=== PATIENT | male | born 1955 | race Asian ===

== ENCOUNTER 2016-08-28 05:40 | Emergency (ER) | payer BC, OTHER ==
[2016-08-28 06:10] VITALS: BMI 26.3
[2016-08-28 06:52] LABS: BASOPHIL 0.7 % (0-2.0); EOSINOPHIL 7.9 % (0-4.5); MCH 29.5 pg (25.7-33.7); MCHC 34.3 g/dl (32.0-35.9); MEAN PLT VOLUME 8.6 fl (7.5-11.1); NEUTROPHILS 59.3 % (42.8-82.8); PLATELET COUNT 180 K/MM3 (134-434); RDW 13.6 % (11.9-15.9); WHITE BLOOD COUNT 6.3 K/mm3 (4.0-10.0)
[2016-08-28] MEDS ORDERED: ASPIRIN 325 MG ENTERIC COATED TABLET (FP) PO ONE (07:01)
[2016-08-28 07:08] LABS: ALBUMIN 4.1 g/dl (3.4-5.0); ALK PHOS 48 U/L (45-117); ANION GAP 4 (8-16); BILIRUBIN,TOTAL 0.9 mg/dL (0.2-1.0); CALCIUM 9.2 mg/dL (8.5-10.1); CO2 30 mmol/L (21-32); COCKROFT - GAULT 82.15; GLUCOSE,RANDOM 111 mg/dL (74-106); SGOT/AST 18 U/L (15-37); SGPT/ALT 23 U/L (12-78)
[2016-08-28 07:10] LABS: TROPONIN I < 0.02 ng/ml (0.00-0.05)
--- NOTE | 2016-08-28 07:14 | PDOC ---
History of Present Illness - General Chief Complaint: Blood Pressure Problem Stated Complaint: HIGH BP, CHEST DISCOMFORT Time Seen by Provider: 08/28/16 07:00 History Source: Patient Exam Limitations: No Limitations - History of Present Illness Initial Comments: 08/28/16 07:02 Patient is a 61-year-old male with history of hypertension, diabetes, BPH, HLD, colon cancer, bowel resection, no chemo or radiation, complaining of chest pressure and elevated blood pressure. Patient states that he woke up this morning with palpitationsheart racing. He got up and took his blood pre and it was elevated on the right to 170/110 and 150/90 on the left. Shortly after had sudden onset of hot flashes and pain in the neck, chest pain described as a pressure, 9/10, nonpleuritic, and dizziness described as spinning. denies dizziness, nausea, vomiting. He took 80 mg of Diovan and then reported to the emergency room for evaluation. Patient states that he's been having problems with elevation in blood pressure for x 1 week. Stress/ECHO normal 4 years ago. No recent travel no leg swelling. PMD: Dr. Randhawa Cardio: Dr. Anderson PMHX: as above PSocHX: neg etoh, drug, cig FAMhx: noncontributory ALL: NKDA GENERAL/CONSTITUTIONAL: [No fever or chills. No weakness. No weight change.] HEAD, EYES, EARS, NOSE AND THROAT: [No change in vision. No ear pain or discharge. No sore throat.] CARDIOVASCULAR: (+) chest pain or shortness of breath.] RESPIRATORY: [No cough, wheezing, or hemoptysis.] GASTROINTESTINAL: [No nausea, vomiting, diarrhea or constipation. No rectal bleeding.] GENITOURINARY: [No dysuria, frequency, or change in urination.] MUSCULOSKELETAL: [No joint or muscle swelling or pain. No neck or back pain.] SKIN AND BREASTS: [No rash or easy bruising.] NEUROLOGIC: [No headache, vertigo, loss of consciousness, or loss of sensation.] PSYCHIATRIC: [No depression or anxiety.] ENDOCRINE: [No increased thirst. No abnormal weight change.] HEMATOLOGIC/LYMPHATIC: [No anemia, easy bleeding, or history of blood clots.] ALLERGIC/IMMUNOLOGIC: [No hives or skin allergy. No latex allergy.] GENERAL: [The patient is awake, alert, and fully oriented, in no acute distress. ] HEAD: [Normal with no signs of trauma.] EYES: [Pupils equal, round and reactive to light, extraocular movements intact, sclera anicteric, conjunctiva clear.] ENT: [Ears normal, nares patent, oropharynx clear without exudates. Moist mucous membranes.] NECK: [Normal range of motion, supple without lymphadenopathy, JVD, or masses.] LUNGS: [Breath sounds equal, clear to auscultation bilaterally. No wheezes, and no crackles.] HEART: [Regular rate and rhythm, normal S1 and S2 without murmur, rub.] ABDOMEN: [Soft, nontender, normoactive bowel sounds. No guarding, no rebound. No masses.] EXTREMITIES: [Normal range of motion, no edema. No clubbing or cyanosis. No cords, erythema, or tenderness.] NEUROLOGICAL: [Cranial nerves II through XII grossly intact. Normal speech, normal gait.] PSYCH: [Normal mood, normal affect.] SKIN: [Warm, Dry, normal turgor, no rashes or lesions noted.] Past History - Past Medical History Allergies/Adverse Reactions: Allergies Allergy/AdvReac Type Severity Reaction Status Date / Time No Known Allergies Allergy Verified 08/28/16 06:08 Home Medications: Ambulatory Orders Aspirin [ASA -] 81 mg PO DAILY 10/17/15 Metformin HCl [Metformin HCl ER] 1,000 mg PO DAILY 10/17/15 Pravastatin Sodium [Pravachol -] 80 mg PO HS 10/17/15 Valsartan [Diovan] 160 mg PO DAILY #30 tablet 10/18/15 Diltiazem Cd [Cardizem Cd -] 240 mg PO DAILY 08/28/16 Dutasteride [Avodart] 0.5 mg PO HS 08/28/16 Cancer: Yes (colon) HTN: Yes Hypercholesterolemia: Yes - Surgical History GI Surgery: Yes (colon cancer) - Psycho/Social/Smoking Cessation Hx Suicidal Ideation: No Smoking History: Former smoker Have you smoked in the past 12 months: No If you are a former smoker, when did you quit?: 1986 Information on smoking cessation initiated: No Hx Alcohol Use: No Drug/Substance Use Hx: No Substance Use Type: None Hx Substance Use Treatment: No *Physical Exam - Vital Signs Last Vital Signs Temp Pulse Resp BP Pulse Ox 97.5 F L 72 18 144/93 97 08/28/16 06:03 08/28/16 06:03 08/28/16 06:03 08/28/16 06:03 08/28/16 06:03 ED Treatment Course - LABORATORY CBC & Chemistry Diagram: 08/28/16 06:30 08/28/16 06:30 - ADDITIONAL ORDERS Additional order review: Laboratory Results 08/28/16 06:30 Sodium 139 Potassium 4.6 Chloride 105 Carbon Dioxide 30 Anion Gap 4 L BUN 14 Creatinine 1.0 Creat Clearance w eGFR > 60 Random Glucose 111 H Calcium 9.2 Total Bilirubin 0.9 AST 18 ALT 23 Alkaline Phosphatase 48 Creatine Kinase 111 Troponin I < 0.02 Total Protein 7.0 Albumin 4.1 D 08/28/16 06:30 RBC 5.25 MCV 86.0 MCHC 34.3 RDW 13.6 MPV 8.6 Neutrophils % 59.3 D Lymphocytes % 26.6 D Monocytes % 5.5 Eosinophils % 7.9 H Basophils % 0.7 - RADIOLOGY Radiology Studies Ordered: Category Date Time Status CHEST X-RAY PORTABLE* [RAD] Stat Radiology 08/28/16 06:26 Taken Medical Decision Making - Medical Decision Making 08/28/16 07:36 Patient is a 61-year-old male with history of hypertension, diabetes, BPH, HLD, colon cancer, bowel resection, no chemo or radiation, complaining of chest pressure and elevated blood pressure. patient is elevated cardiac risk factors will get troponin/EKG, labs, aspirin 325 mg EKG Normal sinus [id number], normal axis,no ST-T wave case was endorsed still [employer] Mohini pending labs and disposition. *DC/Admit/Observation/Transfer Diagnosis at time of Disposition: Hypertension Qualifiers: Hypertension type: essential hypertension Qualified Code(s): I10 - Essential ( primary) hypertension Chest pain Qualifiers: Chest pain type: unspecified Qualified Code(s): R07.9 - Chest pain, unspecified
[2016-08-28] MEDS ORDERED: ASPIRIN 325 MG TABLET ONE (07:15)
--- NOTE | 2016-08-28 07:37 | PDOC ---
*Physical Exam - Vital Signs Last Vital Signs Temp Pulse Resp BP Pulse Ox 97.5 F L 72 18 144/93 97 08/28/16 06:03 08/28/16 06:03 08/28/16 06:03 08/28/16 06:03 08/28/16 06:03 Heart Score/ECG Review #2 General ECG Interpretation: Sinus Rhythm ([id number]) Compared to previous ECG there are: No significant change ED Treatment Course - LABORATORY CBC & Chemistry Diagram: 08/28/16 06:30 08/28/16 06:30 - ADDITIONAL ORDERS Additional order review: Laboratory Results 08/28/16 06:30 Sodium 139 Potassium 4.6 Chloride 105 Carbon Dioxide 30 Anion Gap 4 L BUN 14 Creatinine 1.0 Creat Clearance w eGFR > 60 Random Glucose 111 H Calcium 9.2 Total Bilirubin 0.9 AST 18 ALT 23 Alkaline Phosphatase 48 Creatine Kinase 111 Troponin I < 0.02 Total Protein 7.0 Albumin 4.1 D 08/28/16 06:30 RBC 5.25 MCV 86.0 MCHC 34.3 RDW 13.6 MPV 8.6 Neutrophils % 59.3 D Lymphocytes % 26.6 D Monocytes % 5.5 Eosinophils % 7.9 H Basophils % 0.7 Medical Decision Making - Medical Decision Making 08/28/16 07:30 Patient received in sign out from JAZMYN Meraz. Patient woke up at 1 AM with chest pressure took Diovan and symptoms relieved but decided to come to the ER. Patient has been asymptomatic here and is pending a second troponin Along with an EKG at 10:30 AM> 08/28/16 07:30 Laboratory Tests 08/28/16 08/28/16 06:30 06:30 WBC 6.3 Hgb 15.5 Hct 45.1 Plt Count 180 Neutrophils % 59.3 D Sodium 139 Potassium 4.6 Chloride 105 Carbon Dioxide 30 Anion Gap 4 L BUN 14 Creatinine 1.0 Random Glucose 111 H Calcium 9.2 AST 18 ALT 23 Alkaline Phosphatase 48 Troponin I < 0.02 08/28/16 12:26 Selected Entries 08/28/16 07:15 Temperature 97.7 F Pulse Rate [ 68 Right Radial] Respiratory 18 Rate Blood Pressure 132/92 [Left Arm] O2 Sat by Pulse 100 Oximetry (%) Laboratory Tests 08/28/16 11:29 Creatine Kinase 95 Troponin I < 0.02 Patient remains asymptomatic and will discharge home *DC/Admit/Observation/Transfer Diagnosis at time of Disposition: Hypertension Qualifiers: Hypertension type: essential hypertension Qualified Code(s): I10 - Essential ( primary) hypertension Chest pain Qualifiers: Chest pain type: unspecified Qualified Code(s): R07.9 - Chest pain, unspecified - Discharge Dispostion Condition at time of disposition: Improved - Referrals Referrals: Raúl Randhawa MD [Primary Care Provider] - - Patient Instructions Printed Discharge Instructions: DI for High Blood Pressure Additional Instructions: Please continue taking medication as prescribed and follow-up with your PCP. If his symptoms return or worsen, you may come to the ER.
[2016-08-28 12:22] LABS: TROPONIN I < 0.02 ng/ml (0.00-0.05)
[2016-08-28 13:17] VITALS: BP 137/81; PULSE 66; TEMP 98
--- NOTE | 2016-08-28 13:30 | EKG ---
Test Reason : Blood Pressure : / mmHG Vent. Rate : 064 BPM Atrial Rate : 064 BPM P-R Int : 174 ms QRS Dur : 102 ms QT Int : 384 ms P-R-T Axes : 072 056 066 degrees QTc Int : 396 ms NORMAL SINUS RHYTHM WITH SINUS ARRHYTHMIA NORMAL ECG WHEN COMPARED WITH ECG OF 17-OCT-2015 11:51, NO SIGNIFICANT CHANGE WAS FOUND Confirmed by PRACHI BOND MD ([id number]) on 08/28/2016 1:29:54 PM Referred By: Confirmed By:PRACHI BOND MD
--- NOTE | 2016-08-28 13:42 | EKG ---
Test Reason : Blood Pressure : / mmHG Vent. Rate : 068 BPM Atrial Rate : 068 BPM P-R Int : 170 ms QRS Dur : 094 ms QT Int : 388 ms P-R-T Axes : 068 007 067 degrees QTc Int : 412 ms NORMAL SINUS RHYTHM INCOMPLETE RIGHT BUNDLE BRANCH BLOCK NONSPECIFIC T WAVE ABNORMALITY ABNORMAL ECG WHEN COMPARED WITH ECG OF 28-AUG-2016 05:53, NO SIGNIFICANT CHANGE WAS FOUND Confirmed by PRACHI BOND MD ([id number]) on 08/28/2016 1:41:59 PM Referred By: Confirmed By:PRACHI BOND MD
== END 2016-08-28 13:18 | disposition home or self-care (01) ==
LOC: JER 05:40
DX: I10 Essential (primary) hypertension (principal); E07.89 Other specified disorders of thyroid; E11.9 Type 2 diabetes mellitus without complications; Z79.84 Long term (current) use of oral hypoglycemic drugs; E78.00 Pure hypercholesterolemia, unspecified; N40.0 Benign prostatic hyperplasia without lower urinary tract symptoms; Z85.038 Personal history of other malignant neoplasm of large intestine
CPT/HCPCS: 36415; 71010-TC; 80053; 82550; 84484; 85025; 93005; 93010; 99283-25

== ENCOUNTER 2022-04-10 10:19 | Inpatient (IN) | payer BC, OTHER ==
[2022-04-10 11:13] VITALS: BMI 25.8
[2022-04-10] MEDS ORDERED: SODIUM CHLORIDE 0.9% 1000 ML INFUS.BAG IV ONE ×2 (11:40→14:37)
[2022-04-10] MEDS ORDERED: ALBUTEROL SO4 HFA INHALER IH ONE (12:06)
[2022-04-10] MEDS ORDERED: ACETAMINOPHEN 325 MG TABLET (FP) PO ONE (12:10)
[2022-04-10] MEDS ORDERED: ALBUTEROL SO4 2.5/IPRATROPIUM 0.5 INH SOL 3 ML VIAL.NEB. NEB ONE ×2 (12:10→12:16)
[2022-04-10] MEDS ORDERED: ACETAMINOPHEN 325 MG TABLET (FP) ONE (12:16)
[2022-04-10 13:43] LABS: EPI CELLS 3 /uL (0-25.1); HYALINE CASTS 2 /uL (0-3.1); PH,URINE 5.5 (5.0-8.0); URINE APPEARANCE CLOUDY; URINE BACTERIA >9,000 /uL (0-1359); URINE BILIRUBIN NEGATIVE (NEGATIVE); URINE COLOR DK YELLOW; URINE GLUCOSE (UA) NEGATIVE (NEGATIVE); URINE KETONE NEGATIVE (NEGATIVE); URINE LEUK ESTERASE 2+ (NEGATIVE); URINE NITRITE POSITIVE (NEGATIVE); URINE PROTEIN 2+ (NEGATIVE); URINE RBC 102 /uL (0-23.9); URINE UROBILINOGEN 0.2 mg/dL (0.2-1.0); URINE WBC 777 /uL (0-25.8)
[2022-04-10] MEDS ORDERED: CEFTRIAXONE 1 GM in DEXTROSE 5%-WATER - 50 ML IVPB ONE (13:48)
[2022-04-10 13:50] LABS: BASO % 0.2 % (0-2.0); EOS % 0.9 % (0-4.5); HEMATOCRIT 45.7 % (35.4-49); HEMOGLOBIN 15.1 GM/dL (11.7-16.9); LYMPH % 9.6 % (8-40); MCH 28.5 pg (25.7-33.7); MCHC 33.1 g/dl (32.0-35.9); MEAN CELL VOLUME 86.1 fl (80-96); MEAN PLT VOLUME 9.6 fl (7.5-11.1); MONO % 6.1 % (3.8-10.2); NEUT % 83.2 % (42.8-82.8); PLATELET COUNT 77 10^3/uL (134-434); RBC 5.31 M/mm3 (4.00-5.60); RDW 14.7 % (11.9-15.9); WHITE BLOOD COUNT 8.2 K/mm3 (4.0-10.0)
[2022-04-10] MEDS ORDERED: CEFTRIAXONE 1 GM/50 ML BAG ONE (13:58)
[2022-04-10 14:19] LABS: ALBUMIN 2.8 g/dl (3.4-5.0); BLOOD UREA NITROGEN 32.4 mg/dL (7-18); CALCIUM 10.1 mg/dL (8.5-10.1)
[2022-04-10 14:23] LABS: CREATININE 2.4 mg/dL (0.55-1.3)
[2022-04-10 14:24] LABS: BILIRUBIN,TOTAL 1.1 mg/dL (0.2-1); TOT PROT 6.3 g/dl (6.4-8.2)
[2022-04-10] MEDS ORDERED: LACTATED RINGERS SOLUTION 1,000 ML IV SCH (16:45)
[2022-04-10] MEDS ORDERED: SIMETHICONE 80 MG TAB.CHEW (FP) PO ONE (18:59)
[2022-04-10] MEDS ORDERED: SIMETHICONE 80 MG TAB.CHEW (FP) ONE (19:27)
[2022-04-11] MEDS ORDERED: HEPARIN NA (PORCINE) 5,000 UNITS/ML 1ML VIAL ONE ×2 (00:17→13:39)
[2022-04-11] MEDS: HEPARIN NA (PORCINE) 5,000 UNITS/ML 1ML VIAL SQ SCH ×4 (01:24→21:50)
[2022-04-11] MEDS: INSULIN SLIDING SCALE (NOVOLOG) 1 VIAL SQ SCH ×5 (01:24→23:58)
[2022-04-11] MEDS: OSELTAMIVIR PHOSPHATE 30 MG CAPSULE PO SCH ×2 (01:24→09:54)
[2022-04-11] MEDS ORDERED: ACETAMINOPHEN 325 MG TABLET (FP) PO ONE (04:17)
[2022-04-11] MEDS ORDERED: ACETAMINOPHEN 500 MG TABLET (FP) PO ONE (04:17)
[2022-04-11] MEDS ORDERED: ACETAMINOPHEN 325 MG TABLET (FP) ONE (04:18)
[2022-04-11] MEDS ORDERED: ALBUTEROL SO4 2.5/IPRATROPIUM 0.5 INH SOL 3 ML VIAL.NEB. NEB ONE (09:11)
[2022-04-11] MEDS ORDERED: ALBUTEROL SO4 HFA INHALER IH PRN (09:30)
[2022-04-11] MEDS ORDERED: CEFTRIAXONE 1 GM/50 ML BAG ONE (09:41)
[2022-04-11] MEDS ORDERED: ALBUTEROL SO4 HFA INHALER IH ONE (09:56)
[2022-04-11] MEDS ORDERED: CEFTRIAXONE 1 GM in DEXTROSE 5%-WATER - 50 ML IVPB ONE (10:00)
[2022-04-11 10:09] LABS: HEMATOCRIT 42.4 % (35.4-49); HEMOGLOBIN 14.2 GM/dL (11.7-16.9); MCH 28.6 pg (25.7-33.7); MCHC 33.4 g/dl (32.0-35.9); MEAN CELL VOLUME 85.5 fl (80-96); MEAN PLT VOLUME 9.7 fl (7.5-11.1); PLATELET COUNT 85 10^3/uL (134-434); RBC 4.97 M/mm3 (4.00-5.60); RDW 15.1 % (11.9-15.9); WHITE BLOOD COUNT 7.7 K/mm3 (4.0-10.0)
[2022-04-11 10:41] LABS: ALBUMIN 2.4 g/dl (3.4-5.0); BLOOD UREA NITROGEN 31.5 mg/dL (7-18)
[2022-04-11 10:43] LABS: MAGNESIUM 1.7 mg/dL (1.8-2.4)
[2022-04-11 10:44] LABS: PHOSPHOROUS 2.5 mg/dL (2.5-4.9)
[2022-04-11 10:45] LABS: CREATININE 2.1 mg/dL (0.55-1.3)
[2022-04-11 10:46] LABS: BILIRUBIN,TOTAL 1.1 mg/dL (0.2-1); TOT PROT 5.6 g/dl (6.4-8.2)
[2022-04-11] MEDS: LACTATED RINGERS SOLUTION 1,000 ML/1,000 ML INFUS.BAG IV SCH ×2 (13:38→18:56)
[2022-04-11] MEDS ORDERED: PIPERACILLIN/TAZOB 2.25 GM 2.25 GM/50 ML BAG IVPB ONE (13:52)
[2022-04-11] MEDS: PIPERACILLIN/TAZOB 2.25 GM 2.25 GM in DEXTROSE 5%-WATER - 50 ML IVPB SCH ×2 (14:24→18:57)
[2022-04-11] MEDS ORDERED: SODIUM CHLORIDE 1,000 ML IV STA (15:07)
[2022-04-11] MEDS: EZETIMIBE 10 MG TABLET (FP) PO SCH (16:09)
[2022-04-11 16:39] LABS: EPI CELLS 12 /uL (0-25.1); HYALINE CASTS 1 /uL (0-3.1); URINE APPEARANCE CLEAR; URINE BACTERIA 9 /uL (0-1359); URINE BILIRUBIN NEGATIVE (NEGATIVE); URINE COLOR YELLOW; URINE GLUCOSE (UA) NEGATIVE (NEGATIVE); URINE KETONE NEGATIVE (NEGATIVE); URINE LEUK ESTERASE 2+ (NEGATIVE); URINE NITRITE NEGATIVE (NEGATIVE); URINE PROTEIN TRACE (NEGATIVE); URINE UROBILINOGEN 0.2 mg/dL (0.2-1.0); URINE WBC 381 /uL (0-25.8)
[2022-04-11 19:05] LABS: URINE RBC 69.4 /uL (0-23.9)
[2022-04-11] MEDS: CARVEDILOL 12.5 MG TABLET (FP) PO SCH (21:49)
[2022-04-11] MEDS: ATORVASTATIN CA 80 MG TABLET (FP) PO SCH (21:49)
[2022-04-11] MEDS: SENNOSIDES 8.8 MG/5 ML BULK BOTTLE PO SCH (21:50)
[2022-04-11] MEDS: ACETAMINOPHEN 325 MG TABLET (FP) PO PRN (21:58)
[2022-04-11] MEDS ORDERED: PHENAZOPYRIDINE HCL 100 MG TABLET (FP) PO ONE (22:41)
[2022-04-12] MEDS: PIPERACILLIN/TAZOB 2.25 GM 2.25 GM in DEXTROSE 5%-WATER - 50 ML IVPB SCH ×2 (01:11→10:39)
[2022-04-12] MEDS: HEPARIN NA (PORCINE) 5,000 UNITS/ML 1ML VIAL SQ SCH ×4 (06:23→21:48)
[2022-04-12] MEDS: INSULIN SLIDING SCALE (NOVOLOG) 1 VIAL SQ SCH ×4 (06:44→22:04)
[2022-04-12] MEDS ORDERED: MAGNESIUM SULF 50% (8.12 MEQ/2 ML-1 GM VIAL) IVPB ONE (08:16)
[2022-04-12] MEDS ORDERED: ACETAMINOPHEN 1000 MG/100 ML BAG IVPB PRN (10:38)
[2022-04-12] MEDS: CARVEDILOL 12.5 MG TABLET (FP) PO SCH ×2 (10:39→23:31)
[2022-04-12] MEDS: EZETIMIBE 10 MG TABLET (FP) PO SCH (10:39)
[2022-04-12] MEDS: PHENAZOPYRIDINE HCL 100 MG TABLET (FP) PO SCH (11:22)
[2022-04-12 13:25] LABS: CALCIUM 8.8 mg/dL (8.5-10.1)
[2022-04-12 13:26] LABS: ALBUMIN 2.4 g/dl (3.4-5.0); BLOOD UREA NITROGEN 18.5 mg/dL (7-18)
[2022-04-12 13:29] LABS: CREATININE 1.6 mg/dL (0.55-1.3)
[2022-04-12 13:30] LABS: BILIRUBIN,TOTAL 0.7 mg/dL (0.2-1); TOT PROT 5.4 g/dl (6.4-8.2)
[2022-04-12] MEDS ORDERED: MAGNESIUM HYDROX 2400MG/30ML ORAL SUSPENSION 30 ML CUP PO PRN (13:38)
[2022-04-12] MEDS ORDERED: KETOROLAC TROMETHAMINE 30 MG/1 ML VIAL IM ONE (13:52)
[2022-04-12] MEDS: TAMSULOSIN HCL 0.4 MG CAP PO SCH ×2 (13:57→14:09)
[2022-04-12] MEDS: LACTATED RINGERS SOLUTION 1,000 ML/1,000 ML INFUS.BAG IV SCH ×2 (14:06→21:47)
[2022-04-12] MEDS: CEFTRIAXONE 1 GM in DEXTROSE 5%-WATER - 50 ML IVPB SCH (16:24)
[2022-04-12] MEDS ORDERED: KETOROLAC TROMETHAMINE 10 MG TABLET PO SCH (18:00)
[2022-04-12] MEDS: SENNOSIDES 8.8 MG/5 ML BULK BOTTLE PO SCH ×2 (21:48→22:04)
[2022-04-12] MEDS: ATORVASTATIN CA 80 MG TABLET (FP) PO SCH (21:48)
[2022-04-12] MEDS: KETOROLAC TROMETHAMINE 10 MG TABLET PO SCH (22:55)
[2022-04-13] MEDS: KETOROLAC TROMETHAMINE 10 MG TABLET PO SCH ×3 (04:45→17:05)
[2022-04-13] MEDS: HEPARIN NA (PORCINE) 5,000 UNITS/ML 1ML VIAL SQ SCH ×3 (05:58→22:11)
[2022-04-13] MEDS: INSULIN SLIDING SCALE (NOVOLOG) 1 VIAL SQ SCH ×4 (06:39→22:20)
[2022-04-13] MEDS: CEFTRIAXONE 1 GM in DEXTROSE 5%-WATER - 50 ML IVPB SCH (11:09)
[2022-04-13] MEDS: PHENAZOPYRIDINE HCL 100 MG TABLET (FP) PO SCH (11:12)
[2022-04-13] MEDS: CARVEDILOL 12.5 MG TABLET (FP) PO SCH ×2 (11:12→22:10)
[2022-04-13] MEDS: EZETIMIBE 10 MG TABLET (FP) PO SCH (11:12)
[2022-04-13] MEDS: TAMSULOSIN HCL 0.4 MG CAP PO SCH ×2 (11:12→12:13)
[2022-04-13 11:25] LABS: HEMATOCRIT 41.5 % (35.4-49); HEMOGLOBIN 13.4 GM/dL (11.7-16.9); MCH 27.7 pg (25.7-33.7); MCHC 32.4 g/dl (32.0-35.9); MEAN CELL VOLUME 85.5 fl (80-96); MEAN PLT VOLUME 8.6 fl (7.5-11.1); PLATELET COUNT 128 10^3/uL (134-434); RBC 4.85 M/mm3 (4.00-5.60); RDW 15.6 % (11.9-15.9); WHITE BLOOD COUNT 6.2 K/mm3 (4.0-10.0)
[2022-04-13 11:53] LABS: CALCIUM 9.1 mg/dL (8.5-10.1)
[2022-04-13 11:54] LABS: ALBUMIN 2.5 g/dl (3.4-5.0)
[2022-04-13 11:57] LABS: CREATININE 1.6 mg/dL (0.55-1.3)
[2022-04-13 11:59] LABS: BILIRUBIN,TOTAL 0.8 mg/dL (0.2-1); TOT PROT 5.9 g/dl (6.4-8.2)
[2022-04-13 13:06] LABS: INR 1.03 (0.83-1.09); PROTHROMBIN TIME (PATIENT) 11.8 SEC (9.7-13.0)
[2022-04-13] MEDS: SODIUM CHLORIDE 0.45% 1,000 ML IV SCH (17:04)
[2022-04-13] MEDS: FINASTERIDE 5 MG TABLET (FP) PO SCH ×2 (17:59→18:28)
[2022-04-13] MEDS ORDERED: ATORVASTATIN CA 20 MG TABLET (FP) PO SCH (22:00)
[2022-04-13] MEDS ORDERED: HYDROCORTISONE ACETATE 25 MG/SUPP.RECT RC SCH (22:00)
[2022-04-13] MEDS: SENNOSIDES 8.8 MG/5 ML BULK BOTTLE PO SCH (22:12)
[2022-04-14] MEDS: ACETAMINOPHEN 325 MG TABLET (FP) PO PRN (03:55)
[2022-04-14] MEDS: SODIUM CHLORIDE 0.45% 1,000 ML IV SCH (06:04)
[2022-04-14] MEDS: HEPARIN NA (PORCINE) 5,000 UNITS/ML 1ML VIAL SQ SCH ×2 (06:37→14:52)
[2022-04-14] MEDS: INSULIN SLIDING SCALE (NOVOLOG) 1 VIAL SQ SCH ×3 (06:38→16:50)
[2022-04-14 06:40] VITALS: RESP 18
[2022-04-14] MEDS: EZETIMIBE 10 MG TABLET (FP) PO SCH (09:03)
[2022-04-14] MEDS: PHENAZOPYRIDINE HCL 100 MG TABLET (FP) PO SCH (09:03)
[2022-04-14] MEDS: CEFTRIAXONE 1 GM in DEXTROSE 5%-WATER - 50 ML IVPB SCH (09:03)
[2022-04-14] MEDS: CARVEDILOL 12.5 MG TABLET (FP) PO SCH (09:03)
[2022-04-14] MEDS: FINASTERIDE 5 MG TABLET (FP) PO SCH (09:03)
[2022-04-14] MEDS ORDERED: PATIENT'S OWN MEDICATION (NON-FORMULARY) (Albuterol Sulfate [Proair Respiclick] 90 MCG Aer IH SCH (10:00)
[2022-04-14] MEDS ORDERED: FAMOTIDINE 20 MG TABLET PO SCH (10:00)
[2022-04-14] MEDS ORDERED: PATIENT'S OWN MEDICATION (NON-FORMULARY) (Vibegron [Gemtesa] 75 MG Tablet) PO SCH (10:00)
[2022-04-14 12:22] LABS: HEMATOCRIT 41.8 % (35.4-49); HEMOGLOBIN 13.7 GM/dL (11.7-16.9); MCH 27.7 pg (25.7-33.7); MCHC 32.7 g/dl (32.0-35.9); MEAN CELL VOLUME 84.9 fl (80-96); MEAN PLT VOLUME 8.7 fl (7.5-11.1); PLATELET COUNT 167 10^3/uL (134-434); RBC 4.92 M/mm3 (4.00-5.60); WHITE BLOOD COUNT 7.6 K/mm3 (4.0-10.0)
[2022-04-14 12:57] LABS: CALCIUM 8.9 mg/dL (8.5-10.1)
[2022-04-14 12:58] LABS: ALBUMIN 2.5 g/dl (3.4-5.0); BLOOD UREA NITROGEN 20.7 mg/dL (7-18)
[2022-04-14 13:01] LABS: CREATININE 1.5 mg/dL (0.55-1.3)
[2022-04-14 13:03] LABS: BILIRUBIN,TOTAL 0.8 mg/dL (0.2-1)
[2022-04-14 14:16] VITALS: BP 152/71; PULSE 67; TEMP 98.6
== END 2022-04-14 18:11 | disposition home or self-care (01) | DRG 194 ==
LOC: JER 10:19 → JERBED 17:34 → J5S 04-11 18:41
PROVIDERS: ADMIT Internal Medicine; ATTEND Internal Medicine
DX: J10.1 Influenza due to other identified influenza virus with other respiratory manifestations (principal); N17.9 Acute kidney failure, unspecified; N39.0 Urinary tract infection, site not specified; I10 Essential (primary) hypertension; E78.5 Hyperlipidemia, unspecified; B96.89 Other specified bacterial agents as the cause of diseases classified elsewhere; N32.81 Overactive bladder; E11.9 Type 2 diabetes mellitus without complications; R19.7 Diarrhea, unspecified; N40.1 Benign prostatic hyperplasia with lower urinary tract symptoms; R33.8 Other retention of urine; N20.0 Calculus of kidney; K57.90 Diverticulosis of intestine, part unspecified, without perforation or abscess without bleeding; Z85.038 Personal history of other malignant neoplasm of large intestine
CPT/HCPCS: 0241U-QW; 36415; 74176-TC; 76775-TC; 80048; 80053; 81003; 82436; 82570; 82962; 83690; 83735; 84100; 84133; 84300; 85025; 85027; 85384; 85610; 87040; 87086; 87186; 93005; 93010; 99285-25; J1644